=== PATIENT | male | born 1940 | race Caucasian/White ===

== ENCOUNTER 2017-05-27 17:22 | Emergency (ER) | payer BC, OTHER ==
[~2017-05-27] VITALS: Ht 172.7 cm; Wt 72.6 kg
--- NOTE | 2017-05-27 18:22 | NUR ---
mse completed, rt arm sling placed, pt d/c'd home, aci/rx x1 given. pt ambulated w/o diff/took all belongings.
[2017-05-27 18:29] VITALS: BP 141/72
== END 2017-05-27 18:32 | disposition home or self-care (01) ==
LOC: ER 17:22
DX: S52.121A Displaced fracture of head of right radius, initial encounter for closed fracture (principal); I10 Essential (primary) hypertension; E78.00 Pure hypercholesterolemia, unspecified; W18.30XA Fall on same level, unspecified, initial encounter; Y93.89 Activity, other specified; Y92.89 Other specified places as the place of occurrence of the external cause; Y99.8 Other external cause status
CPT/HCPCS: 73080; A4663